=== PATIENT | male | born 1950 | race American Indian/Alaskan Native ===

== ENCOUNTER 2016-08-10 03:15 | Emergency (ER) | payer OTHER ==
[2016-08-10] MEDS ORDERED: Albuterol-Ipratrop 3 mg / 0.5 (3 ml) UD ONE ×2 (03:21→03:40)
--- NOTE | 2016-08-10 03:25 | C.PDOC ---
History Of Present Illness Patient presents to the ER with a complaint of SOB and wheezing. Patient reports he has a Hx of asthma, states he feels the change in weather is affecting him. Patient is speaking in complete sentences. Denies fever, nausea, or vomiting. Time Seen by Provider: 08/10/16 03:24 History Per: Patient History/Exam Limitations: no limitations Onset/Duration Of Symptoms: Hrs Current Symptoms Are (Timing): Still Present Associated Symptoms: Dyspnea, Other (Wheezing). denies: Fever Preciptating Factors: CHange In Weather Severity: Mild Pain Scale Rating Of: 4 Additional History Per: Patient - Asthma History Rescue Medications: None Past Medical History Reviewed: Historical Data, Nursing Documentation, Vital Signs Vital Signs: Last Vital Signs Temp 98 F 08/10/16 03:29 Pulse 74 08/10/16 03:29 Resp 20 08/10/16 03:29 BP 209/122 H 08/10/16 03:29 Pulse Ox 94 L 08/10/16 03:29 - Medical History PMH: Asthma, HTN Surgical History: No Surg Hx Family History: States: No Known Family Hx - Social History Hx Tobacco Use: No Hx Alcohol Use: No Hx Substance Use: No - Immunization History Hx Tetanus Toxoid Vaccination: No Hx Influenza Vaccination: Yes Hx Pneumococcal Vaccination: No Review Of Systems Constitutional: Negative for: Fever Respiratory: Positive for: Shortness of Breath, Wheezing Gastrointestinal: Negative for: Nausea, Vomiting Physical Exam - Physical Exam Appears: Well, Non-toxic Skin: Warm, Dry Oral Mucosa: Moist Chest: Symmetrical, No Tenderness Cardiovascular: Rhythm Regular, No Murmur Respiratory: No Rales, No Rhonchi, Wheezing (At bases) Gastrointestinal/Abdominal: Soft, No Tenderness Neurological/Psych: Oriented x3 ED Course And Treatment - Laboratory Results Result Diagrams: 08/10/16 04:01 08/10/16 04:01 O2 Sat by Pulse Oximetry: 94 Pulse Ox Interpretation: Normal Progress Note: Blood work and CXR ordered. Medrol IVP and nebulizer treatment administered. Reevaluation Time: 05:07 Reassessment Condition: Improved Critical Care Time - Critical Care Note Total Time (in mins): 30 Documented critical care: time excludes all time spent performing seperately billable procedures. Medical Decision Making Medical Decision Making: Upon provider reevaluation patient is feeling better, is medically stable, and requires no further treatment in the ED at this time. Patient will be discharged home with Rx foralbuterol, zithromax, prednisone . Counseling was provided and all questions were answered regarding diagnosis and need for follow up with dr argueta. There is agreement to discharge plan. Return if symptoms persist or worsen. Disposition Counseled Patient/Family Regarding: Studies Performed, Diagnosis, Need For Followup, Rx Given - Disposition Referrals: Ulises Argueta MD [Staff Provider] - Disposition: HOME/ ROUTINE Disposition Time: 03:25 Condition: FAIR Additional Instructions: Please return if symptoms recur Prescriptions: Albuterol HFA [Ventolin HFA 90 mcg/actuation (8 g)] 2 puff IH [id number] #1 puff Albuterol 0.083% [Albuterol Sulfate 3 Ml] 3 ml IH QID #50 neb Azithromycin [Zithromax Tri-Rashid] 500 mg PO DAILY #3 tablet Prednisone [Deltasone] 20 mg PO DAILY #5 tablet Instructions: Asthma (DC) - Clinical Impression Clinical Impression: Asthma exacerbation - Scribe Statement Malcolm Wiley All medical record entries made by the Scribe were at my direction and personally dictated by me. I have reviewed the chart and agree that the record accurately reflects my personal performance of the history, physical exam, medical decision making, and the department course for this patient. I have also personally directed, reviewed, and agree with the discharge instructions and disposition.
[2016-08-10 03:33] VITALS: BMI 34.4
[2016-08-10 03:37] VITALS: RESP 20
[2016-08-10] MEDS ORDERED: Albuterol-Ipratrop 3 mg / 0.5 (3 ml) UD IH SCH (03:45)
[2016-08-10 04:03] LABS: BASO % 0.4 % (0.0-2.0); EOS # 0.3 K/uL (0.0-0.7); EOS % 2.8 % (0.0-4.0); LYMPH % 8.8 % (20.0-40.0); MEAN CELL VOLUME 83.4 fL (80.0-94.0); MEAN CORPUSCULAR HEMOGLOBIN 27.1 pg (27.0-31.0); MEAN CORPUSCULAR HGB CONC 32.5 g/dL (33.0-37.0); MEAN PLATELET VOLUME 10.6 fL (7.2-11.7); MONO # 0.6 K/uL (0.0-0.8); MONO % 4.9 % (0.0-10.0); PLATELET COUNT 109 K/uL (130-400); RED CELL DISTRIBUTION WIDTH 15.3 % (11.5-14.5); WHITE BLOOD COUNT 11.7 K/uL (4.8-10.8)
[2016-08-10 04:11] LABS: CHLORIDE 103 mmol/L (98-107); POTASSIUM 3.7 mmol/L (3.6-5.2); SODIUM 142 mmol/L (132-148)
[2016-08-10 04:13] LABS: BILIRUBIN,TOTAL 0.5 mg/dL (0.2-1.3); CARBON DIOXIDE 26 mmol/L (22-30); GFR AFRICAN-AMERICAN > 60
[2016-08-10 04:14] LABS: ALB/GLOB RATIO 1.4 (1.0-2.1); ALKALINE PHOSPHATASE 78 U/L (38-126); ALT/SGPT 50 U/L (21-72); AST/SGOT 30 U/L (17-59); BLOOD UREA NITROGEN 12 mg/dL (9-20); GLUCOSE,RANDOM 111 mg/dL (75-110); TOTAL PROTEIN 7.1 g/dL (6.3-8.3)
[2016-08-10 04:50] LABS: EOSINOPHIL 5 % (0-4); GIANT PLATELETS PRESENT; NEUTROPHIL 75 % (50-75); TOTAL CELLS COUNTED 100
[2016-08-10 05:29] VITALS: BP 167/85; PULSE 87; TEMP 98.2; O2SAT 97
--- NOTE | 2016-08-10 08:36 | RAD ---
HISTORY: SOB COMPARISON: None available TECHNIQUE: Chest, one view. FINDINGS: Examination limited by habitus. LUNGS: Right middle lobe patchy opacity may reflect atelectasis or infiltrate. Central vascular prominence. Please note that chest x-ray has limited sensitivity for the detection of pulmonary masses. PLEURA: No significant pleural effusion identified. No definite pneumothorax . CARDIOVASCULAR: Cardiomegaly. OSSEOUS STRUCTURES: No acute osseous abnormality identified. VISUALIZED UPPER ABDOMEN: Unremarkable. OTHER FINDINGS: None. IMPRESSION: Cardiomegaly. Right middle lobe patchy opacity may reflect atelectasis or infiltrate. Central vascular prominence.
== END 2016-08-10 05:28 | disposition home or self-care (01) ==
LOC: C.ER 03:15
DX: J45.901 Unspecified asthma with (acute) exacerbation (principal)
CPT/HCPCS: 71010; 80053; 85025; 96374; 99283; J2930

== ENCOUNTER 2016-08-10 07:57 | Inpatient (IN) | payer OTHER ==
[2016-08-10 07:57] VITALS: BMI 34.4
[2016-08-10] MEDS ORDERED: Albuterol-Ipratrop 3 mg / 0.5 (3 ml) UD ONE ×2 (08:12→09:14)
--- NOTE | 2016-08-10 08:20 | C.PDOC ---
History Of Present Illness 66 year old male presents to the ED with complaints of SOB and not feeling better after visiting [facility] ED at 4am and being discharged. Patient presented to the ED with a history of asthma with complaints of asthma exacerbation. He received nebulizer treatment and solumedrol IV. A chest X-ray was performed and 500 mg Zithromax PO was given and patient was discharged home. Upon return, patient denies fever, vomiting, or any nausea. Time Seen by Provider: 08/10/16 08:14 Chief Complaint (Nursing): Shortness Of Breath History Per: Patient History/Exam Limitations: no limitations Onset/Duration Of Symptoms: Hrs Current Symptoms Are (Timing): Still Present Associated Symptoms: denies: Fever, Chills, Sweating Recent travel outside of the [place]: No Past Medical History Reviewed: Historical Data, Nursing Documentation, Vital Signs Vital Signs: Last Vital Signs Temp 97.5 F L 08/10/16 15:56 Pulse 73 08/10/16 15:56 Resp 20 08/10/16 15:56 BP 211/93 H 08/10/16 15:56 Pulse Ox 98 08/10/16 15:56 - Medical History PMH: Asthma, HTN Family History: States: No Known Family Hx - Social History Hx Tobacco Use: No Hx Alcohol Use: No Hx Substance Use: No - Immunization History Hx Tetanus Toxoid Vaccination: No Hx Influenza Vaccination: Yes Hx Pneumococcal Vaccination: No Review Of Systems Constitutional: Negative for: Fever, Chills, Sweats Cardiovascular: Negative for: Chest Pain, Palpitations Respiratory: Positive for: Shortness of Breath Gastrointestinal: Negative for: Nausea, Vomiting, Abdominal Pain, Diarrhea Physical Exam - Physical Exam Appears: Non-toxic, No Acute Distress Skin: Warm, Dry Eye(s): bilateral: Normal Inspection Oral Mucosa: Moist Neck: Normal ROM, Supple Chest: Symmetrical, No Deformity Cardiovascular: Rhythm Regular, No Murmur Respiratory: No Rales, No Rhonchi, No Stridor, Wheezing (bilateral, more wheezing in the right than the left ) Gastrointestinal/Abdominal: Soft, No Tenderness, No Distention, No Guarding, No Rebound Extremity: Normal ROM, No Tenderness Neurological/Psych: Oriented x3 ED Course And Treatment - Laboratory Results Result Diagrams: 08/10/16 09:28 08/10/16 09:28 O2 Sat by Pulse Oximetry: 92 - Radiology CXR: Interpreted by Me, Viewed By Me CXR Interpretation: Yes: Infiltrates (right middle lobe ) - Physician Consult Information Time Consulting Physician Contacted: 10:00 Physician Contacted: Dr. Andres Outcome Of Conversation: Upon discussion with Dr. Andres, patient was accepted for admission for his services. Medical Decision Making Medical Decision Making: Patient was re-accessed, as well as CXR. Patient was given Duoneb x 3, Avelox IV. Patient is hypoxic (92%RA). Disposition - Disposition Disposition: HOSPITALIZED Disposition Time: 08:58 Condition: FAIR - Clinical Impression Clinical Impression: Asthma exacerbation, Pneumonia - Scribe Statement The provider has reviewed the documentation as recorded by the Scribe Kayla Jorge All medical record entries made by the Scribe were at my direction and personally dictated by me. I have reviewed the chart and agree that the record accurately reflects my personal performance of the history, physical exam, medical decision making, and the department course for this patient. I have also personally directed, reviewed, and agree with the discharge instructions and disposition. Decision To Admit - Pt Status Changed To: Hospital Disposition Of: Inpatient - Admit Certification Admit to Inpatient:: After my assessment, the patient will require hospitalization for at least two midnights. This is because of the severity of symptoms shown, intensity of services needed, and/or the medical risk in this patient being treated as an outpatient. - InPatient: Physician Admission Certification: I certify that this patient requires 2 or more midnights of care for the following reason:: Patient will Ashthma and Pneumonia will need more than 2 days of respiratory treatments and IV antibiotics. - . Bed Request Type: Regular Admitting Physician: Ulises Andres Patient Diagnosis: Asthma exacerbation, Pneumonia
[2016-08-10] MEDS ORDERED: Moxifloxacin IV 400mg/250ml NS 400 MG/250 ML BAG IV STA (08:54)
[2016-08-10] MEDS ORDERED: Albuterol-Ipratrop 3 mg / 0.5 (3 ml) UD IH STA (08:57)
[2016-08-10] MEDS ORDERED: Moxifloxacin IV 400mg/250ml NS 400 MG/250 ML BAG IVPB ONE (09:14)
[2016-08-10 09:33] LABS: BASO % 0.1 % (0.0-2.0); EOS % 0.1 % (0.0-4.0); HEMATOCRIT 53.8 % (35.0-51.0); LYMPH # 0.4 K/uL (1.0-4.3); LYMPH % 2.7 % (20.0-40.0); MEAN CORPUSCULAR HEMOGLOBIN 27.4 pg (27.0-31.0); MEAN CORPUSCULAR HGB CONC 32.6 g/dL (33.0-37.0); MEAN PLATELET VOLUME 10.5 fL (7.2-11.7); MONO # 0.2 K/uL (0.0-0.8); MONO % 1.2 % (0.0-10.0); PLATELET COUNT 121 K/uL (130-400); RED CELL DISTRIBUTION WIDTH 15.2 % (11.5-14.5); WHITE BLOOD COUNT 15.1 K/uL (4.8-10.8)
[2016-08-10 09:39] LABS: CHLORIDE 100 mmol/L (98-107); POTASSIUM 4.5 mmol/L (3.6-5.2); SODIUM 145 mmol/L (132-148)
[2016-08-10 09:41] LABS: ALB/GLOB RATIO 1.4 (1.0-2.1); ALKALINE PHOSPHATASE 73 U/L (38-126); AST/SGOT 42 U/L (17-59); BILIRUBIN,TOTAL 0.7 mg/dL (0.2-1.3); CARBON DIOXIDE 28 mmol/L (22-30); GFR AFRICAN-AMERICAN > 60
[2016-08-10 09:42] LABS: ALT/SGPT 55 U/L (21-72); BLOOD UREA NITROGEN 11 mg/dL (9-20); CALCIUM 9.2 mg/dl (8.6-10.4); GLUCOSE,RANDOM 143 mg/dL (75-110)
[2016-08-10 10:20] LABS: NEUTROPHIL 88 % (50-75); REACTIVE LYMPHOCYTES 1 % (0-0); TOTAL CELLS COUNTED 100
[2016-08-10] MEDS ORDERED: Pneumococcal 23-Valent Vaccine IM ONE (11:35)
[2016-08-10] MEDS: MethylPREDNISolone 40 mg Vial IVP SCH (23:51)
[2016-08-11] MEDS: Albuterol-Ipratrop 3 mg / 0.5 (3 ml) UD INH SCH ×6 (00:15→19:40)
[2016-08-11] MEDS: MethylPREDNISolone 40 mg Vial IVP SCH ×3 (05:39→17:45)
[2016-08-11] MEDS: Moxifloxacin IV 400mg/250ml NS 400 MG/250 ML BAG IVPB SCH (10:19)
[2016-08-12] MEDS: MethylPREDNISolone 40 mg Vial IVP SCH ×4 (00:10→17:41)
[2016-08-12] MEDS: Albuterol-Ipratrop 3 mg / 0.5 (3 ml) UD INH SCH ×7 (00:21→23:39)
[2016-08-12] MEDS ORDERED: Pneumococcal 23-Valent Vaccine IM ONE (10:00)
--- NOTE | 2016-08-12 11:11 | CP.PCM.PN ---
Subjective - Date & Time of Evaluation Date of Evaluation: 08/12/16 Time of Evaluation: 09:10 - Subjective Subjective: PGY2 Medicine Note - Dr. Sonal Harris's service: Patient seen and examined this AM. Rapid response was called at 6:30am for SBP in 200s. Patient reported slight headache but denies vision changes, chest pain , SOB, abdominal pain, nausea, vomiting, dysuria. Patient says he has had high blood pressure for many years but it started going "wacky" 3 years ago when he was in an accident and got 3 slipped discs in his lower back. Patient says his blood pressure goes up and down a lot since then. Objective - Vital Signs/Intake and Output Vital Signs (last 24 hours): Temp Pulse Resp BP Pulse Ox 97 F L 70 18 169/81 H 97 08/12/16 07:40 08/12/16 07:40 08/12/16 07:40 08/12/16 07:40 08/12/16 07:40 Intake and Output: 08/12/16 08/12/16 06:59 18:59 Intake Total 150 Balance 150 - Medications Medications: Current Medications Acetaminophen (Tylenol 325mg Tab) 650 mg PO Q6 PRN PRN Reason: Headache Last Admin: 08/12/16 07:09 Dose: 650 mg Albuterol/Ipratropium (Duoneb 3 Mg/0.5 Mg (3 Ml) Ud) 3 ml INH RQ4 [facility] Last Admin: 08/12/16 07:34 Dose: 3 ml Amlodipine Besylate (Norvasc) 10 mg PO DAILY [facility] Last Admin: 08/12/16 10:09 Dose: 10 mg Aspirin (Aspirin Chewable) 81 mg PO DAILY [facility] Clonidine HCl (Catapres) 0.2 mg PO Q8 [facility] Last Admin: 08/12/16 05:24 Dose: 0.2 mg Hydrochlorothiazide (Hydrodiuril) 25 mg PO DAILY [facility] Last Admin: 08/12/16 10:12 Dose: 25 mg Moxifloxacin HCl (Avelox Iv 400mg/250ml Ns) 400 mg in 250 mls @ 167 mls/hr IVPB Q24H [facility] Last Admin: 08/11/16 10:19 Dose: 167 mls/hr Methylprednisolone (Solu-Medrol) 40 mg IVP Q6H [facility] Last Admin: 08/12/16 05:24 Dose: 40 mg Rosuvastatin Calcium (Crestor) 5 mg PO HS [facility] - Labs Labs: 08/10/16 09:28 08/10/16 09:28 - Constitutional Appears: Non-toxic, No Acute Distress - Head Exam Head Exam: NORMAL INSPECTION - Eye Exam Eye Exam: EOMI - ENT Exam ENT Exam: Mucous Membranes Moist - Respiratory Exam Respiratory Exam: Clear to Ausculation Bilateral, NORMAL BREATHING PATTERN. absent: Rales, Rhonchi, Wheezes - Cardiovascular Exam Cardiovascular Exam: REGULAR RHYTHM, +S1, +S2. absent: Gallop, Rubs, Murmur - GI/Abdominal Exam GI & Abdominal Exam: Soft, Normal Bowel Sounds. absent: Tenderness - Extremities Exam Extremities Exam: Normal Capillary Refill. absent: Pedal Edema - Neurological Exam Neurological Exam: Alert, Oriented x3 - Psychiatric Exam Psychiatric exam: Normal Affect, Normal Mood - Skin Skin Exam: Normal Color, Warm Assessment and Plan - Assessment and Plan (Free Text) Assessment: Asthma exacerbation Duoneb 3ml INH RQ4 [facility] Solu-Medrol 40mg IVP Q6H Monitor HTN urgency Verapamil 240mg PO daily (home med) Clonidine 0.2mg PO Q8 [facility] HCTZ 25mg PO daily ST elevations ASA 325mg PO stat ASA 81mg PO daily Crestor 5mg PO HS EKG - V2, V3, V4 ST elevations v. J point elevations No prior EKG in chart or EMR F/U ECHO Mely - total CK 888H, CK-MB 3.77H, trop 0.0230 Cardiac cath today at 10:30am Cardio consult - Dr. Weaver - help appreciated Pneumonia Avelox 400mg IVPB daily Prophylaxis Protonix 40mg PO daily Lovenox 40mg SC daily
[2016-08-12] MEDS ORDERED: DiphenhydrAMINE 50 mg/ml Inj ONE (11:29)
[2016-08-12] MEDS ORDERED: Nitroglycerin 50mg in D5W 50 MG/250 ML BOTTLE IV ONE (11:33)
[2016-08-12] MEDS ORDERED: Midazolam 2 MG/2 ML VIAL ONE (11:47)
[2016-08-12] MEDS ORDERED: Iodixanol 320 MG/ML 200 ML BOTTLE IV ONE (11:58)
[2016-08-12] MEDS ORDERED: Iodixanol 320 MG/ML 100 ML BOTTLE IV ONE (12:04)
[2016-08-12] MEDS: Moxifloxacin IV 400mg/250ml NS 400 MG/250 ML BAG IVPB SCH ×2 (14:29→17:42)
[2016-08-12] MEDS: Sodium Chloride 0.45% 1,000 ML IV SCH ×2 (14:33→20:51)
[2016-08-12 16:12] VITALS: RESP 20
[2016-08-13] MEDS: MethylPREDNISolone 40 mg Vial IVP SCH ×4 (00:10→17:44)
[2016-08-13] MEDS: Albuterol-Ipratrop 3 mg / 0.5 (3 ml) UD INH SCH ×5 (03:04→20:21)
--- NOTE | 2016-08-13 07:12 | CARD ---
APPROVED REPORT EXAM: Two-dimensional and M-mode echocardiogram with Doppler and color Doppler. Other Information Quality : GoodRhythm : NSR RISK FACTORS Obesity M-Mode DIMENSIONS RVDd0.94 (2.1-3.2cm)Left Atrium (MM)4.45 (2.5-4.0cm) IVSd1.56 (0.7-1.1cm)Aortic Root3.32 (2.2-3.7cm) LVDd6.21 (4.0-5.6cm)Aortic Cusp Exc.2.03 (1.5-2.0cm) PWd1.56 (0.7-1.1cm)FS (%) 58 % LVDs2.62 (2.0-3.8cm)LVEF (%)87 (>50%) Mitral Valve MV E Bninette42.7cm/sMV A Gjpvldng828.3cm/sE/A ratio0.7 TDI E/Lateral E'0.0E/Medial E'0.0 Tricuspid Valve TR Peak Apmdldlc525no/sTR Peak Gr.[id number] LEFT VENTRICLE The left ventricle is normal size. There is moderate concentric left ventricular hypertrophy. Left ventricle systolic function is normal. The Ejection Fraction is >70%. There is normal LV segmental wall motion. Tissue Doppler imaging reveals abnormal left ventricular diastolic dysfunction. No left ventricle thrombus noted on this study. RIGHT VENTRICLE The right ventricle is normal size. There is normal right ventricular wall thickness. The right ventricular systolic function is normal. ATRIA The left atrium size is normal. The right atrium size is normal. The interatrial septum is intact with no evidence for an atrial septal defect. AORTIC VALVE The aortic valve is normal in structure. No aortic regurgitation is present. There is no aortic valvular stenosis. There is no aortic valvular vegetation. MITRAL VALVE The mitral valve is normal in structure. There is no evidence of mitral valve prolapse. There is no mitral valve stenosis. Mitral regurgitation is mild. TRICUSPID VALVE The tricuspid valve is normal in structure. There is trace to mild tricuspid regurgitation. Right ventricular systolic pressure is estimated at less than 30 mmHg. There is no pulmonary hypertension. PULMONIC VALVE The pulmonic valve is not well visualized. There is no pulmonic valvular regurgitation. GREAT VESSELS The aortic root is normal in size. PERICARDIAL EFFUSION There is no significant pericardial effusion. <Conclusion> Left ventricle systolic function is normal. The Ejection Fraction is >70%. Diastolic dysfunction. No aortic regurgitation is present. Mitral regurgitation is mild. There is trace to mild tricuspid regurgitation. There is no pulmonary hypertension. There is no pulmonic valvular regurgitation.
[2016-08-13] MEDS: Pantoprazole 40 mg EC Tab PO SCH (09:45)
[2016-08-13] MEDS: Enoxaparin 40 mg Syringe SC SCH (09:45)
[2016-08-13] MEDS: Moxifloxacin IV 400mg/250ml NS 400 MG/250 ML BAG IVPB SCH (09:57)
--- NOTE | 2016-08-13 11:27 | CP.PCM.PN ---
Subjective - Date & Time of Evaluation Date of Evaluation: 08/13/16 Time of Evaluation: 08:35 - Subjective Subjective: PGY2 Medicine Note - Dr. Sonal Harris's service: Patient seen and examined this AM. Patient's BP went from 120s/80s at 5am to 200s/100s at 8am. Hydralazine 25mg PO was given. Patient also had a run of vtach for over 24 beats at 8:06 and 8:12. Patient was asymptomatic. Patient denies fever, chills, chest pain, dyspnea, diaphoresis, palpitations, nausea, vomiting, impending doom, diarrhea, dysuria. Objective - Vital Signs/Intake and Output Vital Signs (last 24 hours): Temp Pulse Resp BP Pulse Ox 98.3 F 76 20 206/87 H 94 L 08/13/16 08:32 08/13/16 08:32 08/13/16 08:32 08/13/16 08:32 08/13/16 08:32 Intake and Output: 08/13/16 08/13/16 06:59 18:59 Intake Total 1380 Output Total 1450 Balance -70 - Medications Medications: Current Medications Acetaminophen (Tylenol 325mg Tab) 650 mg PO Q6 PRN PRN Reason: Headache Last Admin: 08/12/16 07:09 Dose: 650 mg Albuterol/Ipratropium (Duoneb 3 Mg/0.5 Mg (3 Ml) Ud) 3 ml INH RQ4 [facility] Last Admin: 08/13/16 11:11 Dose: 3 ml Amlodipine Besylate (Norvasc) 10 mg PO DAILY [facility] Last Admin: 08/13/16 09:46 Dose: 10 mg Aspirin (Aspirin Chewable) 81 mg PO DAILY [facility] Last Admin: 08/13/16 09:45 Dose: 81 mg Clonidine HCl (Catapres) 0.2 mg PO Q8 [facility] Last Admin: 08/13/16 05:04 Dose: 0.2 mg Enoxaparin Sodium (Lovenox) 40 mg SC DAILY [facility] Last Admin: 08/13/16 09:45 Dose: 40 mg Hydralazine HCl (Apresoline) 25 mg PO TID PRN PRN Reason: HTN Last Admin: 08/13/16 08:18 Dose: 25 mg Hydrochlorothiazide (Hydrodiuril) 25 mg PO DAILY [facility] Last Admin: 08/13/16 10:00 Dose: 25 mg Moxifloxacin HCl (Avelox Iv 400mg/250ml Ns) 400 mg in 250 mls @ 167 mls/hr IVPB Q24H [facility] Last Admin: 08/13/16 09:57 Dose: 167 mls/hr Losartan Potassium (Cozaar) 25 mg PO DAILY [facility] Last Admin: 08/13/16 09:46 Dose: 25 mg Methylprednisolone (Solu-Medrol) 40 mg IVP Q6H [facility] Last Admin: 08/13/16 05:04 Dose: 40 mg Metoprolol Tartrate (Lopressor) 12.5 mg PO BID [facility] Last Admin: 08/13/16 09:59 Dose: 12.5 mg Pantoprazole Sodium (Protonix Ec Tab) 40 mg PO DAILY [facility] Last Admin: 08/13/16 09:45 Dose: 40 mg Rosuvastatin Calcium (Crestor) 5 mg PO HS [facility] Last Admin: 08/12/16 21:06 Dose: 5 mg - Labs Labs: 08/10/16 09:28 08/10/16 09:28 - Constitutional Appears: Non-toxic, No Acute Distress - Head Exam Head Exam: NORMAL INSPECTION - Eye Exam Eye Exam: EOMI - ENT Exam ENT Exam: Mucous Membranes Moist - Respiratory Exam Respiratory Exam: Clear to Ausculation Bilateral, NORMAL BREATHING PATTERN. absent: Rales, Rhonchi, Wheezes - Cardiovascular Exam Cardiovascular Exam: REGULAR RHYTHM, +S1, +S2, Murmur (systolic) - GI/Abdominal Exam GI & Abdominal Exam: Soft, Normal Bowel Sounds. absent: Tenderness - Extremities Exam Extremities Exam: absent: Pedal Edema - Neurological Exam Neurological Exam: Alert, Awake, Oriented x3 - Psychiatric Exam Psychiatric exam: Normal Affect, Normal Mood - Skin Skin Exam: Normal Color, Warm Assessment and Plan - Assessment and Plan (Free Text) Assessment: Asthma exacerbation Duoneb 3ml INH RQ4 [facility] Solu-Medrol 40mg IVP Q6H Monitor HTN urgency Norvasc 10mg PO daily Clonidine 0.2mg PO Q8 [facility] Hydralazine 25mg PO TID PRN HTN Cozaar 25mg PO daily HCTZ 25mg PO daily Lopressor 12.5mg PO BID Ventricular Tachycardia two runs over 25 beats between 8am and 8:20 EP cardio consult - Dr. Alas - help appreciated F/U TSH, Mg Lopressor 12.5mg PO BID added today ST elevations ASA 325mg PO stat ASA 81mg PO daily Crestor 5mg PO HS EKG - V2, V3, V4 ST elevations v. J point elevations No prior EKG in chart or EMR ECHO - EF >70%, diastolic dysfunction, mild mitral regurgitation (please see full report) NATHALIA - total CK 888H, CK-MB 3.77H, trop 0.0230 Cardiac cath 08/12/16 - clear per Dr. Weaver Cardio consult - Dr. Weaver - help appreciated Pneumonia Avelox 400mg IVPB daily Prophylaxis Protonix 40mg PO daily Lovenox 40mg SC daily
[2016-08-13 11:40] LABS: MAGNESIUM 2.4 mg/dL (1.6-2.3); PHOSPHOROUS 3.6 mg/dL (2.5-4.5)
[2016-08-13 12:08] LABS: THYROID STIMULATING HORMONE 0.32 mIU/L (0.46-4.68)
[2016-08-13 14:23] LABS: CHLORIDE 99 mmol/L (98-107); POTASSIUM 3.5 mmol/L (3.6-5.2); SODIUM 138 mmol/L (132-148)
[2016-08-13 14:25] LABS: ALB/GLOB RATIO 1.3 (1.0-2.1); ALKALINE PHOSPHATASE 62 U/L (38-126); AST/SGOT 31 U/L (17-59); BILIRUBIN,TOTAL 0.6 mg/dL (0.2-1.3); CARBON DIOXIDE 24 mmol/L (22-30); GFR AFRICAN-AMERICAN > 60; TOTAL PROTEIN 6.9 g/dL (6.3-8.3)
[2016-08-13 14:26] LABS: ALT/SGPT 46 U/L (21-72); BLOOD UREA NITROGEN 24 mg/dL (9-20); CALCIUM 8.8 mg/dl (8.6-10.4); GLUCOSE,RANDOM 117 mg/dL (75-110)
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
[2016-08-14] MEDS: MethylPREDNISolone 40 mg Vial IVP SCH ×3 (00:06→12:53)
[2016-08-14] MEDS: Albuterol-Ipratrop 3 mg / 0.5 (3 ml) UD INH SCH ×5 (00:55→15:51)
[2016-08-14 06:46] LABS: BASO % 0.1 % (0.0-2.0); HEMATOCRIT 52.1 % (35.0-51.0); LYMPH # 0.7 K/uL (1.0-4.3); LYMPH % 5.5 % (20.0-40.0); MEAN CELL VOLUME 84.1 fL (80.0-94.0); MEAN CORPUSCULAR HEMOGLOBIN 27.5 pg (27.0-31.0); MEAN CORPUSCULAR HGB CONC 32.7 g/dL (33.0-37.0); MEAN PLATELET VOLUME 10.6 fL (7.2-11.7); MONO # 0.6 K/uL (0.0-0.8); MONO % 4.2 % (0.0-10.0); NRBC % 0.1 % (0.0-2.0); PLATELET COUNT 130 K/uL (130-400); RED CELL DISTRIBUTION WIDTH 15.4 % (11.5-14.5); WHITE BLOOD COUNT 13.4 K/uL (4.8-10.8)
[2016-08-14 06:48] LABS: CHLORIDE 98 mmol/L (98-107); POTASSIUM 4.1 mmol/L (3.6-5.2); SODIUM 138 mmol/L (132-148)
[2016-08-14 06:50] LABS: GFR AFRICAN-AMERICAN > 60
[2016-08-14 06:51] LABS: ALB/GLOB RATIO 1.4 (1.0-2.1); ALKALINE PHOSPHATASE 61 U/L (38-126); ALT/SGPT 70 U/L (21-72); AST/SGOT 29 U/L (17-59); BILIRUBIN,TOTAL 0.9 mg/dL (0.2-1.3); BLOOD UREA NITROGEN 24 mg/dL (9-20); CARBON DIOXIDE 28 mmol/L (22-30); GLUCOSE,RANDOM 120 mg/dL (75-110); TOTAL PROTEIN 6.8 g/dL (6.3-8.3)
[2016-08-14 06:52] LABS: CALCIUM 8.7 mg/dl (8.6-10.4)
[2016-08-14 08:57] LABS: LARGE PLATELETS PRESENT; NEUTROPHIL 89 % (50-75); TOTAL CELLS COUNTED 100
--- NOTE | 2016-08-14 09:29 | CP.PCM.PN ---
Subjective - Date & Time of Evaluation Date of Evaluation: 08/14/16 Time of Evaluation: 07:50 - Subjective Subjective: PGY2 Medicine Note - Dr. Andres's service: Patient seen and examined at bedside this AM. Patient has no complaints. Patient denies fever, chills, chest pain, SOB, cough, abdominal pain, nausea, vomiting. Objective - Vital Signs/Intake and Output Vital Signs (last 24 hours): Temp Pulse Resp BP Pulse Ox 97.9 F 65 20 156/86 H 97 08/14/16 07:00 08/14/16 07:00 08/14/16 07:00 08/14/16 07:00 08/14/16 07:00 Intake and Output: 08/14/16 08/14/16 06:59 18:59 Intake Total 30 Balance 30 - Medications Medications: Current Medications Acetaminophen (Tylenol 325mg Tab) 650 mg PO Q6 PRN PRN Reason: Headache Last Admin: 08/12/16 07:09 Dose: 650 mg Albuterol/Ipratropium (Duoneb 3 Mg/0.5 Mg (3 Ml) Ud) 3 ml INH RQ4 [facility] Last Admin: 08/14/16 07:50 Dose: 3 ml Amlodipine Besylate (Norvasc) 10 mg PO DAILY [facility] Last Admin: 08/13/16 09:46 Dose: 10 mg Aspirin (Aspirin Chewable) 81 mg PO DAILY [facility] Last Admin: 08/13/16 09:45 Dose: 81 mg Enoxaparin Sodium (Lovenox) 40 mg SC DAILY [facility] Last Admin: 08/13/16 09:45 Dose: 40 mg Hydralazine HCl (Apresoline) 25 mg PO TID PRN PRN Reason: HTN Last Admin: 08/14/16 00:04 Dose: 25 mg Hydrochlorothiazide (Hydrodiuril) 25 mg PO DAILY [facility] Last Admin: 08/13/16 10:00 Dose: 25 mg Moxifloxacin HCl (Avelox Iv 400mg/250ml Ns) 400 mg in 250 mls @ 167 mls/hr IVPB Q24H [facility] Last Admin: 08/13/16 09:57 Dose: 167 mls/hr Losartan Potassium (Cozaar) 100 mg PO DAILY [facility] Methylprednisolone (Solu-Medrol) 40 mg IVP Q6H [facility] Last Admin: 08/14/16 06:02 Dose: 40 mg Metoprolol Succinate (Toprol Xl) 50 mg PO DAILY [facility] Montelukast Sodium (Singulair) 10 mg PO HS [facility] Pantoprazole Sodium (Protonix Ec Tab) 40 mg PO DAILY [facility] Last Admin: 08/13/16 09:45 Dose: 40 mg Rosuvastatin Calcium (Crestor) 5 mg PO HS [facility] Last Admin: 08/13/16 21:52 Dose: 5 mg Fluticasone/Salmeterol (Advair Diskus 250/50) 1 puff INH RQ12 [facility] - Labs Labs: 08/14/16 06:27 08/14/16 06:27 - Constitutional Appears: Non-toxic, No Acute Distress - Head Exam Head Exam: NORMAL INSPECTION - Eye Exam Eye Exam: EOMI - ENT Exam ENT Exam: Mucous Membranes Moist - Respiratory Exam Respiratory Exam: Wheezes (slight expiratory wheezes). absent: Accessory Muscle Use, Respiratory Distress - Cardiovascular Exam Cardiovascular Exam: REGULAR RHYTHM, +S1, +S2. absent: Tachycardia, Gallop, Rubs, Murmur - GI/Abdominal Exam GI & Abdominal Exam: Soft, Normal Bowel Sounds. absent: Tenderness - Extremities Exam Extremities Exam: Normal Capillary Refill. absent: Pedal Edema - Neurological Exam Neurological Exam: Alert, Oriented x3 - Psychiatric Exam Psychiatric exam: Normal Affect, Normal Mood - Skin Skin Exam: Normal Color, Warm Assessment and Plan - Assessment and Plan (Free Text) Assessment: Asthma exacerbation Duoneb 3ml INH RQ4 [facility] Solu-Medrol 40mg IVP Q6H Advair 250/50mg 1 puff INH BID Singulair 10mg PO HS Monitor HTN urgency Norvasc 10mg PO daily Hydralazine 25mg PO TID PRN HTN Cozaar 100mg PO daily HCTZ 25mg PO daily Metoprolol XL 50mg PO daily Ventricular Tachycardia two runs over 25 beats between 8am and 8:20 EP cardio consult - Dr. Alas - help appreciated Lopressor 12.5mg PO BID added today TSH 0.32 Low TSH level F/U repeat TSH outpatient F/U Free T4 and thyroglobulin Ab and TPO Ab outpatient May need to be started on methimazole outpatient ST elevations ASA 325mg PO stat ASA 81mg PO daily Crestor 5mg PO HS EKG - V2, V3, V4 ST elevations v. J point elevations No prior EKG in chart or EMR ECHO - EF >70%, diastolic dysfunction, mild mitral regurgitation (please see full report) NATHALIA - total CK 888H, CK-MB 3.77H, trop 0.0230 Cardiac cath 08/12/16 - clear per Dr. Weaver Cardio consult - Dr. Weaver - help appreciated Pneumonia Avelox 400mg IVPB daily Prophylaxis Protonix 40mg PO daily Lovenox 40mg SC daily Likely D/C today with these instructions: Patient to be discharged home per Dr. Andres. Patient should resume his home metoprolol XL 50mg by mouth daily and albuterol. Patient should stop all other home meds. Patient should take newly prescribed medications as directed below. Patient should make an appointment and follow up with Dr. Andres and reliability manager, Dr. Alas, within one week. Patient will need cardiac MRI outpatient. Patient will need to follow up thyroid studies outpatient. Patient should return to ED immediately if symptoms return or worsen. Newly prescribed medications: Pepcid 20mg by mouth twice a day #60 to protect stomach from steroid Losartan 100mg by mouth daily #30 Norvasc 10mg by mouth daily #30 HCTZ 25mg by mouth daily #30 Aspirin 81mg by mouth daily #30 Simvastatin 10mg by mouth daily #30 Advair diskus 250/50mg 1 puff inhaled twice a day even if patient is feeling well and breathing well #1 disk Singulair 10mg by mouth every night #30 Z pack - azithromycin 250mg by mouth - take 2 tabs on 08/15/16, then 1 tab on , 08/17/16, 08/18/16, 08/19/16 - directions will be on packaging # 1 pack Prednisone 10mg #63 take 6 tabs by mouth daily for 3 days then, take 5 tabs by mouth daily for 3 days then, take 4 tabs by mouth daily for 3 days then, take 3 tabs by mouth daily for 3 days then, take 2 tabs by mouth daily for 3 days then, take 1 tab by mouth daily for 3 [address] Will discuss with Dr. Andres
[2016-08-14] MEDS ORDERED: Metoprolol Succinate 50 mg XL Tab PO SCH (10:00)
[2016-08-14] MEDS: Enoxaparin 40 mg Syringe SC SCH (10:20)
[2016-08-14] MEDS: Pantoprazole 40 mg EC Tab PO SCH (10:20)
[2016-08-14] MEDS: Moxifloxacin IV 400mg/250ml NS 400 MG/250 ML BAG IVPB SCH (10:21)
--- NOTE | 2016-08-14 11:09 | CARD ---
APPROVED REPORT EKG Measurement Heart [id number] <Conclusion> Sinus rhythm with occasional premature ventricular complexes Biatrial enlargement Left ventricular hypertrophy Nonspecific T wave abnormality Abnormal ECG
--- NOTE | 2016-08-14 11:25 | CP.PCM.PN ---
<Prasanth Dean - Last Filed: 08/14/16 11:21> Subjective - Date & Time of Evaluation Date of Evaluation: 08/14/16 Time of Evaluation: 11:21 - Subjective Subjective: Cardiology Progress Note Dr. Alas Patient seen and examined at the bedside. No acute distress. No acute events overnight. Nursing staff reports no issues. Patient has no complaints this morning. No cardiac arrhythmias. Plan is for DC home today per primary team. Patient denies all cardiopulmonary complaints at this time. 12 point review of systems completed and negative for all acute complaints. Objective - Vital Signs/Intake and Output Vital Signs (last 24 hours): Temp Pulse Resp BP Pulse Ox 97.9 F 73 20 162/86 H 97 08/14/16 07:00 08/14/16 10:19 08/14/16 07:00 08/14/16 10:19 08/14/16 07:00 Intake and Output: 08/14/16 08/14/16 06:59 18:59 Intake Total 30 Balance 30 - Medications Medications: Current Medications Acetaminophen (Tylenol 325mg Tab) 650 mg PO Q6 PRN PRN Reason: Headache Last Admin: 08/12/16 07:09 Dose: 650 mg Albuterol/Ipratropium (Duoneb 3 Mg/0.5 Mg (3 Ml) Ud) 3 ml INH RQ4 [facility] Last Admin: 08/14/16 07:50 Dose: 3 ml Amlodipine Besylate (Norvasc) 10 mg PO DAILY [facility] Last Admin: 08/14/16 10:20 Dose: 10 mg Aspirin (Aspirin Chewable) 81 mg PO DAILY [facility] Last Admin: 08/14/16 10:20 Dose: 81 mg Enoxaparin Sodium (Lovenox) 40 mg SC DAILY [facility] Last Admin: 08/14/16 10:20 Dose: 40 mg Hydralazine HCl (Apresoline) 25 mg PO TID PRN PRN Reason: HTN Last Admin: 08/14/16 00:04 Dose: 25 mg Hydrochlorothiazide (Hydrodiuril) 25 mg PO DAILY [facility] Last Admin: 08/14/16 10:20 Dose: 25 mg Moxifloxacin HCl (Avelox Iv 400mg/250ml Ns) 400 mg in 250 mls @ 167 mls/hr IVPB Q24H [facility] Last Admin: 08/14/16 10:21 Dose: 167 mls/hr Losartan Potassium (Cozaar) 100 mg PO DAILY [facility] Last Admin: 08/14/16 10:20 Dose: 100 mg Methylprednisolone (Solu-Medrol) 40 mg IVP Q6H [facility] Last Admin: 08/14/16 06:02 Dose: 40 mg Metoprolol Succinate (Toprol Xl) 50 mg PO DAILY [facility] Last Admin: 08/14/16 10:20 Dose: 50 mg Montelukast Sodium (Singulair) 10 mg PO [facility] Pantoprazole Sodium (Protonix Ec Tab) 40 mg PO DAILY [facility] Last Admin: 08/14/16 10:20 Dose: 40 mg Rosuvastatin Calcium (Crestor) 5 mg PO HS [facility] Last Admin: 08/13/16 21:52 Dose: 5 mg Fluticasone/Salmeterol (Advair Diskus 250/50) 1 puff INH RQ12 [facility] - Labs Labs: 08/14/16 06:27 08/14/16 06:27 - Additional Findings Additional findings: - Constitutional Appears: Well, No Acute Distress - Head Exam Head Exam: ATRAUMATIC, NORMAL INSPECTION, NORMOCEPHALIC - Eye Exam Eye Exam: Conjunctival injection, EOMI, Normal appearance Pupil Exam: NORMAL ACCOMODATION - ENT Exam ENT Exam: Mucous Membranes Moist, Normal Exam - Neck Exam Neck exam: Positive for: Full Rom, Normal Inspection. Negative for: Lymphadenopathy, Tenderness - Respiratory Exam Respiratory Exam: Clear to Auscultation Bilateral, NORMAL BREATHING PATTERN. absent: Decreased Breath Sounds, Rales, Rhonchi, Wheezes, Respiratory Distress, Stridor - Cardiovascular Exam Cardiovascular Exam: REGULAR RHYTHM, RRR, +S1, +S2. absent: Diastolic murmur, Systolic Murmur - GI/Abdominal Exam GI & Abdominal Exam: Normal Bowel Sounds, Soft. absent: Distended, Firm, Guarding, Rebound, Rigid, Tenderness - Extremities Exam Extremities exam: Positive for: normal capillary refill, normal inspection, pedal pulses present. Negative for: calf tenderness, pedal edema - Back Exam Back exam: NORMAL INSPECTION. absent: CVA tenderness (L), CVA tenderness (R) - Neurological Exam Neurological exam: Alert, CN II-XII Intact, Normal Gait, Oriented x3 - Psychiatric Exam Psychiatric exam: Normal Affect, Normal Mood - Skin Skin Exam: Dry, Intact, Normal Color, Warm Assessment and Plan (1) Non-sustained ventricular tachycardia Assessment & Plan: Non-sustained VT on tele monitor this morning at 8:06am rhythm resolved spontaneously Continue Telemetric Monitoring Hemodynamically Stable Lopressor 12.5mg PO BID- continue as an outpatient Aspirin 81mg PO daily Patient will require cardiac MRI as an outpatient. Follow with Dr. Alas in his office. Patient may also need a Implantable Loop Recorder following MRI. This can be placed as an outpatient by Dr. Alas. Patient is cardiac Stable at this time Troponins negative x 2 (<0.0120 > 0.63809) CKMB Elevated (5.77 > 3.77) TSH Low (0.32) 08/13/16 EKG- sinus rhythm (86bpm), occasional PVCs, physiologic axis, normal [place]/ QRS duration, prolonged QTc, LVH, nonspecific T wave abnormality, biatrial enlargement 08/12/16 EKG- normal sinus rhythm (71bpm), normal intervals, physiologic axis, LVH , nonspecific ST abnormality 08/12/16 Cardiac Cath- non obstructive coronary arteries. 08/12/16 Echo- normal LV systolic function, EF>70%, diastolic dysfunction, no AR and mild MR. Case Discussed with Dr. Evette Dean PGY1 Status: Acute (2) Hypertension, uncontrolled Assessment & Plan: aggressive BP control - Goal <150/90 per JNC 8 Guidelines Continue: - Lopreswsor 12.5mg PO BID - Norvasc 10mg PO Daily - Cozaar 25mg PO daily - Clonidine 0.2mg PO q8 - HCTZX 25mg PO Daily - Crestor 5mg PO HS Hydralazine 25mg PO TID PRN (SBP >160mmHg) Status: Chronic <Vanessa Alas - Last Filed: 08/28/16 12:56> Objective - Vital Signs/Intake and Output Vital Signs (last 24 hours): Temp Pulse Resp BP Pulse Ox 97.2 F L 65 20 166/88 H 96 08/14/16 15:59 08/14/16 15:59 08/14/16 15:59 08/14/16 15:59 08/14/16 15:59 - Labs Labs: 08/14/16 06:27 08/14/16 06:27 Attending/Attestation - Attestation I have personally seen and examined this patient.: Yes I have fully participated in the care of the patient.: Yes I have reviewed all pertinent clinical information, including history, physical exam and plan: Yes Notes (Text): 08/28/16 12:56 no cp stable follow up with Dr Andres
[2016-08-14 16:05] VITALS: BP 166/88; PULSE 65; TEMP 97.2; O2SAT 96
[2016-08-14] MEDS ORDERED: Fluticasone-Salmeterol 250-50mcg Diskus INH SCH (20:00)
--- NOTE | 2016-08-16 12:14 | HP ---
CHIEF COMPLAINT: ____ persistent shortness of breath, wheezing, coughing, ____ outpatient therapy or Emergency Room management and hence he was brought to the Emergency Room. HISTORY OF PRESENT ILLNESS: The patient with asthma, history of hypertension. The patient is a nons moker, nondrinker. PHYSICAL EXAMINATION: GENERAL: The patient is awake, alert, oriented. VITAL SIGNS: Temperature 98, pulse 90. HEENT: Within normal limits. NECK: Supple. CHEST: Symmetrical. HEART: Regular. ABDOMEN: Soft. EXTREMITIES: No edema. The patient suffers from bronchial asthma, bronchitis, hypertension uncontrolled. The patient bedres t, ventilator, supportive care. Ulises Brown MD cc: [id number] TT: 08/16/2016 11:46:09 jn 08/16/2016 11:13:30
--- NOTE | 2016-08-16 12:59 | DS ---
The patient was admitted to the hospital with chief complaint of shortness of breath, weakness, fatig ue, tiredness. The patient had high blood pressure and abnormal EKG, and patient had cardiac c ath. The patient had some arrhythmia and seen by fruit harvester. The patient is being discharg ed. DIAGNOSES: Status asthmaticus, exacerbation of asthma, uncontrolled hypertension and cardiac arrhyth harvey. Ulises Brown MD cc: [id number] TT: 08/16/2016 12:55:24 en
--- NOTE | 2016-08-28 23:16 | CARDCATH ---
PROCEDURE DATE: 08/12/2016 PROCEDURES: 1. Left heart catheterization. 2. Coronary angiogram. CLINICAL INDICATIONS: 1. Chest pain. 2. Hypertension. 3. Abnormal EKG. REFERRING PHYSICIAN: Dr. Ulises Brown. PERFORMING PHYSICIAN: Dr. Newton Weaver. PROCEDURE: After informed consent, patient was prepped and draped in the usual sterile fashion. 2% lidocaine was given in the right wrist for local anesthesia. Using micropuncture technique, 6-Thai sheath was inserted into right radial artery. Using usual diagnostic catheter, left heart catheteri zation and coronary angiogram was performed. The patient tolerated the procedure well. FINDINGS: 1. Left main coronary artery is patent. 2. LAD and diagonal branches are patent. 3. Left circumflex and obtuse marginal branches are patent. 4. The RCA is patent. 5. LV ejection fraction is approximately 65%. No wall motion abnormalities. IMPRESSION: 1. Normal coronaries. 2. Normal left ventricular systolic function. Newton Weaver MD cc: [id number] TT: 08/28/2016 23:15:29 mn
--- NOTE | 2016-08-30 11:54 | CARD ---
APPROVED REPORT EKG Measurement Heart [id number] <Conclusion> Normal sinus rhythm Minimal voltage criteria for LVH, may be normal variant Nonspecific ST and T wave abnormality Abnormal ECG
== END 2016-08-14 17:27 | disposition home or self-care (01) | DRG 286 ==
LOC: C.ER 07:57 → C.9E 08:58 → C.5T 09:50 → C.6T 16:40
PROVIDERS: ADMIT Internal Medicine Pulmonary Disease; ATTEND Internal Medicine Pulmonary Disease
PROC: 4A023N7 Measurement of Cardiac Sampling and Pressure, Left Heart, Percutaneous Approach (ICD-10-PCS; principal; 2016-08-12)
PROC: B2151ZZ Fluoroscopy of Left Heart using Low Osmolar Contrast (ICD-10-PCS; 2016-08-12)
PROC: B2111ZZ Fluoroscopy of Multiple Coronary Arteries using Low Osmolar Contrast (ICD-10-PCS; 2016-08-12)
DX: I16.0 Hypertensive urgency (principal); J18.9 Pneumonia, unspecified organism; I47.2 Ventricular tachycardia; I25.10 Atherosclerotic heart disease of native coronary artery without angina pectoris; J45.901 Unspecified asthma with (acute) exacerbation; I10 Essential (primary) hypertension; R06.02 Shortness of breath; R09.02 Hypoxemia

== ENCOUNTER 2017-04-16 07:02 | Day surgery (SDC) | payer OTHER ==
[2017-04-16] MEDS ORDERED: MethylPREDNISolone Depo 40 mg/ml Inj ONE ×2 (07:39→10:37)
[2017-04-16] MEDS ORDERED: Iohexol 240 (50 ml) ONE (07:39)
[2017-04-16] MEDS ORDERED: Bupivacaine HCl 0.25% PF (10 ml) Inj ONE (07:39)
[2017-04-16] MEDS ORDERED: Lactated Ringer's 1,000 ML IV ONE ×2 (08:51→09:08)
[2017-04-16] MEDS ORDERED: Propofol 10 mg/ml Inj (20 ML) ONE ×2 (08:56→09:03)
--- NOTE | 2017-04-16 09:33 | OP ---
PROCEDURE DATE: 04/16/17 PREOPERATIVE DIAGNOSES: 1. Lumbar radiculopathy. 2. Lumbar herniated disc. 3. Myalgias. POSTOPERATIVE DIAGNOSES: 1. Lumbar radiculopathy. 2. Lumbar herniated disc. 3. Myalgias. PROCEDURE: 1. Right L4-L5, L5-S1 lumbar selective nerve root block. 2. Epidurogram. 3. Trigger point injections. X-RAY: [id number], Fluoroscopy of the spine. ANESTHESIA: MAC/local. SURGEON: Monet Stubbs MD COMPLICATIONS: None. BLOOD LOSS: 2 mL. INDICATION: This patient has intractable back and leg pain that is unresponsive to conservative management. The pain is adversely affecting quality of life and activities of daily living. TECHNIQUE: After comprehensive informed consent was obtained, the risks of the procedure explained and questions answered. The patient understands fully the risks are, but not limited to possible bleeding, infection, headache, nervous tissue injury and worsening of their pain. The patient was placed prone on the operating table in a comfortable position. Confirmation of the procedure to be performed was obtained from the patient. The skin overlying the area to be injected was cleaned in a strict sterile fashion using chlorhexidine. Sterile drapes were placed around the area to be injected. Using the C-arm in the anteroposterior view, the levels to be injected were identified under fluoroscope. Then, the C-arm was obliqued in the coronal plane until the facet joint was delineated approximately 25 degrees. The area to be injected was superficially anesthetized with 3 mL of 1% lidocaine using a 27-gauge, 1.25-inch needle. Under fluoroscopic guidance, a 22-gauge, 3.5-inch short bevel needle was advanced and directed toward the tip of the pars. In the lateral view, ideal placement of the needle was obtained with the tip in the cephalodorsal corner of the neural foramen. In the anteroposterior plane and under continuous fluoroscopy, 1 mL of non-ionic, water-soluble contrast (Omnipaque 180) was injected to visualize the nerve root and make sure there was no vascular uptake. After negative aspiration for blood, 1 mL of preservative-free 0.5% Marcaine in 80 mg of Depo-Medrol was slowly injected at each level. The patient experienced no painful paresthesia during the injection. Epidurogram: The patient underwent transforaminal epidural steroid injection today. The epidural was observed at the level of L4-L5 under AP and lateral fluoroscopic guidance. A 2 mL of Omnipaque 200 contrast was injected that evenly spread from level L3 to S1 level with posterior-anterior dye spread bilaterally at level of L4-L5 and L5-S1. There appeared to be a moderate degree spondylosis at level of L4-L5 and moderate degree of spondylosis at the level of L5-S1 with disc protrusion at the level of L4-L5. The intervertebral disc height at the level of L4-L5 was slightly less than normal and intervertebral disc height at the level of L5-S1 was well maintained. The neural foramen appeared to be patent. Good epidural dye containment from L3-S1 with intervertebral disc protrusion at the level of L4-L5, maintaining less than normal intervertebral disc height at level L4-L5. Spondylosis noted at the level of L4 through S1. Copies of the images are on file. Trigger Point Injections: A 27-gauge needle was used to inject trigger point areas in paralumbar muscles, parathoracic muscles, and upper gluteal muscles. Needle was redirected to sciatic nerve branches. Total volume of 10 mL of 0.25% Marcaine. Intermittent aspiration was done throughout with no heme or CSF aspirated throughout. Patient tolerated procedure well. DISPOSITION: Patient was taken to the recovery room in stable condition. Patient was given instructions to follow up in two weeks and was discharged in stable condition. No events or complications. Monet Stubbs MD
[2017-04-16] MEDS ORDERED: Lidocaine Hydrochloride 0 ML INJ ONE (10:37)
[2017-04-16 12:21] VITALS: BP 121/69; PULSE 55; RESP 18; TEMP 97.6; O2SAT 98
--- NOTE | 2017-04-16 15:37 | RAD ---
PROCEDURE: Intraoperative fluoroscopy HISTORY: LUMBAR RADICULOPATHY COMPARISON: Not available TECHNIQUE: Intraoperative fluoroscopy was provided for lumbar facet injection. Total time of fluoroscopy was 21.1 seconds. FINDINGS: A single fluoroscopic spot film is submitted. IMPRESSION: Fluoroscopy provided.
== END 2017-04-16 11:53 | disposition home or self-care (01) ==
LOC: C.SDS 07:02
PROVIDERS: ATTEND Anesthesiology Pain Medicine
DX: M51.16 Intervertebral disc disorders with radiculopathy, lumbar region (principal); I10 Essential (primary) hypertension
CPT/HCPCS: 20553; 62323; 64493; 64494; J1030; J2704; J7120; Q9966